=== PATIENT | female | born 1980 | race African-American/Black ===

== ENCOUNTER 2016-10-31 17:07 | Emergency (ER) ==
[2016-10-31 17:37] LABS: URINE CULTURE PL NEEDED? NO; URINE SOURCE CLEAN CATCH
[2016-10-31 17:39] LABS: BILIRUBIN URINE NEGATIVE (NEGATIVE); BLOOD URINE 4+ (NEGATIVE); CLARITY CLEAR (CLEAR); COLOR YELLOW; GLUCOSE URINE NEGATIVE (NEGATIVE); LEUKOCYTES URINE NEGATIVE (NEGATIVE); NITRITE URINE NEGATIVE (NEGATIVE); PH URINE 6.5; PROTEIN URINE NEGATIVE (NEGATIVE); SP GRAVITY URINE 1.005; UROBILINOGEN URINE 4+(12 mg/dL)
[2016-10-31 17:48] LABS: MANUAL DIFF NEEDED? NO
[2016-10-31 17:50] LABS: EOS# 0.11 X1000 (0.0-0.7); EOS% 1.9 % (0.0-10.0); HEMATOCRIT 34.6 % (37.0-47.0); HEMOGLOBIN 12.1 g/dL (12.0-16.0); LYMPH# 2.71 X1000 (1.2-3.4); LYMPH% 47.8 % (20.5-51.1); MCH 27.4 PG (27-31); MCV 78.3 FL (81-99); MONO# 0.66 X1000 (0.11-0.59); MONO% 11.6 % (1.7-9.3); MPV 10.9 FL (7.4-10.4); NEUT% 38.7 % (42.2-75.2); PLT 211 X1000 (130-400); RBC 4.42 XMIL (4.2-5.4)
[2016-10-31 17:56] LABS: URINE CAST NONE SEEN /LPF; URINE CRYSTAL NONE SEEN /HPF; URINE EPITHELIAL CELLS >10 /HPF (<10); URINE RBC <10 /HPF (<10)
--- NOTE | 2016-10-31 18:05 | PROVIDER DOCUMENTATION ---
HPI-Female /OB/Breast - General Source: reports: patient - History of Present Illness-Female /OB Does patient report she is ?: Yes Radiation: reports: none Context/Activities at Onset: reports: other (pap smear). denies: light activity , moderate activity, vigorous activity, recent emotional stress, recent physical stress, recent trauma history, possible bad food, cold exposure, eating , out of country travel, rest, sleep, sexual activity Vaginal Symptoms: reports: abnormal bleeding. denies: discharge, foul odor, itching, pain with intercourse, passing clots/tissue Vaginal Bleeding Amount: Spotting Urinary Symptoms: reports: no symptoms. denies: anuria, dysuria, dribbling, frequency, hematuria, hesitancy, incontinent, nocturia, polyuria, retention, urgency, low back pain Related Symptoms: reports: vaginal bleeding. denies: vaginal fluid leakage, uterine contractions, pelvic pain, abdominal pain Leakage of Fluid: none <Lesley Campbell - Last Filed: 10/31/16 19:31> <Romaine Dangelo - Last Filed: 10/31/16 21:27> - General Chief Complaint: Female Stated Complaint: 8WKS PREG/ABD PAIN/BLEEDING Time Seen by Provider: 10/31/16 17:44 Allergies/Adverse Reactions: Patient Allergies Allergy/AdvReac Type Severity Reaction Status Date / Time No Known Allergies Allergy Verified 05/12/15 15:07 Home Medications: Home Medication List Medication Instructions Recorded Confirmed Last Taken Type No Home Medications 10/31/16 10/31/16 Unknown History - History of Present Illness-Female /OB Nature of Presenting Problem: 36 y/o AAF , with previous ectopic in the right tube with rupture, approx 8 wks pregnanct by LMP, last saw OB 1 week ago where she had bHCG and pap smear continued. C/o vaginal bleeding since pap smear. it was light bleeding only when she wiped, but becoming heavier today. Still less than normal menses. Galled the OB, who told her this was normal, but she anted to come be checked. Denies abdominal pain, n/v/d. Denies dysuria, frequency or urgency. Denies vaginal discharge. States bleeding mostly just when she wipes. (Lesley Campbell) Review of Systems - Adult - REVIEW OF SYSTEMS - ADULT Constitutional: reports: no symptoms reported. denies: chills, fever, fatique Eyes: reports: no symptoms reported. denies: decreased vision, blurred vision, double vision, eye pain Ears, Nose, Mouth & Throat: reports: no symptoms reported. denies: ear pain, nose pain, throat pain Cardiovascular: reports: no symptoms reported. denies: chest pain, palpitations Respiratory: reports: no symptoms reported. denies: cough, shortness of breath Gastrointestinal: reports: no symptoms reported. denies: abdominal pain, diarrhea, nausea, vomiting Genitourinary: reports: no symptoms reported. denies: dysuria, discharge, frequency, incontinence Musculoskeletal: reports: no symptoms reported. denies: bone pain, back pain, muscle aches Integumentary: reports: no symptoms reported. denies: rash Neurological: reports: no symptoms reported. denies: dizziness/vertigo, headache/migraines Psychiatric: reports: no symptoms reported Endocrine: reports: no symptoms reported Hematologic/Lymphatic: reports: no symptoms reported Allergic/Immunologic: reports: no symptoms reported All Other Systems: Reviewed and Negative <Lesley Campbell - Last Filed: 10/31/16 19:31> Past History - Adult - PAST MEDICAL HISTORY-ADULT Review of Records: reports: Old Records Reviewed, Nursing Assessment Review, Medications Reviewed Major Childhood Illnesses: reports: denies history Cardiovascular: reports: denies history Respiratory: reports: denies history Gastrointestinal: reports: denies history Obstetrical/Gynecological: reports: ectopic Genitourinary: reports: denies history Musculoskeletal: reports: denies history Neurological: reports: other (brain abscess) 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) Other Conditions: reports: denies history - PRIOR SURGERIES/PROCEDURES Surgical/Procedure History: reports: , other (brain abscess) - IMMUNIZATION STATUS Childhood Immunizations: See Nurse Assessment Flu Vaccine: See Nurse Assessment - FAMILY HISTORY Family History: reviewed, not pertinent - SOCIAL HISTORY Smoking: denies Substance Use: none/never Alcohol Use Frequency: never <Lesley Campbell - Last Filed: 10/31/16 19:31> Physical Exam-General - PHYSICAL EXAM-ADULT Initial Vital Signs Reviewed: Yes - CONSTITUTIONAL General Appearance: appears well, alert, no apparent distress - EYES Eyes: PERRL/EOMI, pink conjunctivae - HEAD, EARS, NOSE, MOUTH & THROAT HENMT: normocephalic/atraumatic, moist mucous membranes, normal ENT inspection - NECK Neck: non-tender, full range of motion, supple, normal inspection - RESPIRATORY Respiratory: chest non-tender, lungs clear, normal breath sounds, no pleuratic chest pain, no respiratory distress, no accessory muscle use. negative: respiratory distress, decreased breath sounds, accessory muscle use, crackles, rales, rhonchi, wheezing - CARDIOVASCULAR Cardiovascular: normal peripheral pulses, regular rate, rhythm - GASTROINTESTINAL (ABDOMEN) Abdominal Exam: normal bowel sounds, non tender, soft, no organomegaly, no pulsatile mass. negative: abdominal bruit, abnormal bowel sounds, distended, guarding, rigid, rebound, tenderness - MUSCULOSKELETAL Extremity: normal gait - SKIN Integumentary: normal color, normal turgor, warm/dry - NEUROLOGIC Neurologic: grossly normal, no motor/sensory deficits - PSYCHIATRIC Psych/Mental Status: normal mood/affect, normal thought content, normal thought process, oriented x 3 <Lesley Campbell - Last Filed: 10/31/16 19:31> Progress - CHANGE OF SHIFT REPORT (ED Provider) Report Given and Care Transferred to:: Dr. Dangelo Time of Transfer: 19:31 Items Pending: Ultrasound Results Tentative Impression of Patient: stable <Lesley Campbell - Last Filed: 10/31/16 19:31> - ULTRASOUND (By Radiology) 1 US Study: Pelvic (8 week 3 day gestational sac, no free fluid, left ovarian cyst ) <Romaine Dangelo - Last Filed: 10/31/16 21:27> - PLAN OF CARE/RESULTS Progress/Plan/Lab Results: Vital Signs Temp Pulse Resp BP Pulse Ox 10/31/16 17:13 98 F 96 H 18 139/81 100 No Known Allergies Allergy (Verified 05/12/15 15:07) No Home Medications 10/31/16 Laboratory 10/31/16 10/31/16 10/31/16 17:40 17:40 17:40 WBC 5.67 RBC 4.42 Hgb 12.1 Hct 34.6 L MCV 78.3 L MCH 27.4 MCHC 35.0 RDW Std Deviation 12.4 Plt Count 211 MPV 10.9 H Immature Gran % (Auto) 0.0 Neut % (Auto) 38.7 L Lymph % (Auto) 47.8 [place] % (Auto) 11.6 H Eos % (Auto) 1.9 Baso % (Auto) 0.0 Immature Gran # (Auto) 0.00 Neut # (Auto) 2.19 Lymph # (Auto) 2.71 [place] # (Auto) 0.66 H Eos # (Auto) 0.11 Baso # (Auto) 0.00 Sodium Potassium Chloride Carbon Dioxide Anion Gap BUN Creatinine Estimated GFR/1.73 m2 BUN/Creatinine Ratio Glucose Calculated Osmolality Calcium Total Bilirubin AST ALT Alkaline Phosphatase Total Protein Albumin Globulin Albumin/Globulin Ratio Ser , Semi-Qnt 11838.0 Urine Source Urine Color Urine Clarity Urine pH Ur Specific [place] Urine Protein Urine Ketones Urine Blood Urine Nitrite Urine Bilirubin Urine Urobilinogen Urine Microscopic RBC Urine WBC Ur Epithelial Cells Urine Crystals Urine Bacteria Urine Casts Urine Yeast Urine Glucose ABO/Rh B POSITIVE RhIG Candidate? NO 10/31/16 10/31/16 17:40 17:36 WBC RBC Hgb Hct MCV MCH MCHC RDW Std Deviation Plt Count MPV Immature Gran % (Auto) Neut % (Auto) Lymph % (Auto) [place] % (Auto) Eos % (Auto) Baso % (Auto) Immature Gran # (Auto) Neut # (Auto) Lymph # (Auto) [place] # (Auto) Eos # (Auto) Baso # (Auto) Sodium 136 Potassium 3.2 L Chloride 100 Carbon Dioxide 22 L Anion Gap 13 BUN 8 Creatinine 0.4 L Estimated GFR/1.73 m2 > 60 BUN/Creatinine Ratio 20 Glucose 123 H Calculated Osmolality 272 Calcium 9.3 Total Bilirubin 0.50 AST 23 ALT 18 Alkaline Phosphatase 191 H Total Protein 7.3 Albumin 4.1 Globulin 3.0 Albumin/Globulin Ratio 1.0 Ser , Semi-Qnt Urine Source CLEAN CATCH Urine Color YELLOW Urine Clarity CLEAR Urine pH 6.5 Ur Specific [place] 1.005 Urine Protein NEGATIVE Urine Ketones NEGATIVE Urine Blood 4+ Urine Nitrite NEGATIVE Urine Bilirubin NEGATIVE Urine Urobilinogen 4+(12 mg/dL) Urine Microscopic RBC <10 Urine WBC NEGATIVE Ur Epithelial Cells >10 A Urine Crystals NONE SEEN Urine Bacteria 1+ Urine Casts NONE SEEN Urine Yeast NONE SEEN Urine Glucose NEGATIVE ABO/Rh RhIG Candidate? Orders Category Date Time Status US OBS COMPLETE < 14 WKS [US] Stat Exams 10/31/16 18:58 Ordered CBC WITH DIFF [HEME] Stat Lab 10/31/16 17:40 Completed CMP [COMPREHENSIVE METABOLIC PANEL] [CHEM] Stat Lab 10/31/16 17:40 Completed QUANT TEST Stat Lab 10/31/16 17:40 Completed RHOGAM WORKUP [BBK] Stat Lab 10/31/16 17:[address] W/POSS RFLX CULT [URINALYSIS] Stat Lab 10/31/16 17:36 Completed (Lesley Campbell) rechecked patient: no further bleeding, nontender abdomen, informed patient of OB results that showed 8wk 3day IUP and no pelvic fluid, incidental left ovarian cyst (Romaine Dangelo) Departure <Lesley Campbell - Last Filed: 10/31/16 19:31> - Departure Time of Disposition Order: 21:25 Certified Medical Emergency: Emergent <Romaine Dangelo - Last Filed: 10/31/16 21:27> - Departure DIAGNOSIS: Threatened miscarriage in early , 8 weeks gestation of Disposition: HOME 01 Condition: Stable Additional Instructions: no work until cleared by Ob doctor next week, no strenuous activity, followup with OB doctor next week Referrals: Thais Darling MD [Primary Care Provider] - Attestation - Physician/ KARMA Attestation Patient care was provided by Advanced Practice Provider:: Yes Advanced Practice Provider:: Lesley Campbell Advanced Practice Provider documentation review:: The Mid-level provider documentation, treatment plan and medical decision making was reviewed by the physician who agrees with all treatment and medical decision making by the MLP. The physician spent face to face time with patient:: Yes <Lesley Campbell - Last Filed: 10/31/16 19:31> Physician Attestation
[2016-10-31 18:11] LABS: AGAP 13; ALBUMIN 4.1 g/dL (3.5-5.0); ALKALINE PHOSPHATASE 191 U/L (32-104); BUN 8 mg/dL (8-22); CALCIUM 9.3 mg/dL (8.8-10.2); CHLORIDE 100 mmol/L (98-107); COSMO 272; GOT 23 U/L (10-30); GPT 18 U/L (10-36); POTASSIUM 3.2 mmol/L (3.5-5.1); SODIUM 136 mmol/L (136-145); TCO2 22 mmol/L (25-35); TOTAL PROTEIN 7.3 g/dL (6.3-8.3)
[2016-10-31 20:51] VITALS: BP 130/74
--- NOTE | 2016-11-01 09:35 | Diag Imaging Result Document ---
PROCEDURE NAME: US OBS COMPLETE < 14 WKS - 10/31/2016 OB ULTRASOUND: FINDINGS: There is an intrauterine gestational sac was 2 apparent yolk sacs. No poles are identified and no cardiac activity is demonstrated. By gestational sac size, the estimated gestational age should be 8 weeks, 3 days. The individual yolk sacs are both over 6 mm in size. There is a left ovarian cyst measuring 1.5 cm. There is a nabothian cyst in the cervix. No previous studies are available for this . There is no evidence of free pelvic fluid. IMPRESSION: Intrauterine gestational sac, consistent with a gestational age of 8 weeks, 3 days. The absence of visible pole or cardiac activity is concerning for a failed . The finding of the yolk sacs in excess of 6 mm is also somewhat concerning; however, this is not diagnostic. Followup scanning may be desirable in 1-2 weeks. The possibility of a twin gestation is suggested.
== END 2016-10-31 21:40 | disposition home or self-care (01) ==
LOC: P.ED 17:07
DX: O20.0 Threatened abortion (principal); O46.91 Antepartum hemorrhage, unspecified, first trimester; Z3A.01 Less than 8 weeks gestation of pregnancy
CPT/HCPCS: 36415; 76801; 80053; 81001; 84702; 85025; 86900; 86901

== ENCOUNTER 2016-11-01 20:07 | Emergency (ER) ==
[2016-11-01 20:25] LABS: MANUAL DIFF NEEDED? NO
--- NOTE | 2016-11-01 20:36 | PROVIDER DOCUMENTATION ---
HPI-General Adult - General Chief Complaint: Return/Recheck Stated Complaint: 8 WKS PREG/BLEEDING Time Seen by Provider: 11/01/16 20:12 Source: patient Allergies/Adverse Reactions: Patient Allergies Allergy/AdvReac Type Severity Reaction Status Date / Time No Known Allergies Allergy Verified 05/12/15 15:07 Home Medications: Home Medication List Medication Instructions Recorded Confirmed Last Taken Type No Home Medications 10/31/16 10/31/16 Unknown History - History of Present Illness -Gen Adult Nature of Presenting Problems: Pt. is 36 yof that presents with c/o abd cramping with vaginal bleeding at 8 weeks . Pt. reports she is a G4, P2 with one ectopic rupture. Pt. states she was seen last night for the same and was told she was fine. Pt. reports tonight she began to pass clots and now she is cramping. Pt. denies any other symptoms. Location of Pain/Injury: reports: abdomen. denies: head, face, mouth, neck, chest, upper extremity, hand(s), back, pelvis, genitalia, lower extremity, feet , upper body, lower body, generalized Pain Radiation: reports: no radiation Quality of Pain: reports: cramping. denies: aching, burning, dull, fullness, indigestion, pressure, sharp, stabbing, tearing, throbbing, tightness Severity: reports: moderate. denies: mild, severe Onset/Duration: reports: abrupt, this evening Timing: reports: still present. denies: improving, gone now, resolved prior to arrival, intermittent, constant, changing over time, getting worse Context/Activities at Onset: reports: none. denies: recent emotional stress, recent physical stress, recent trauma history, possible bad food, cold exposure , out of country travel Modifying Factors: improves with: nothing Associated Symptoms: reports: other (Vaginal bleeding with ). denies: anxiety, arm pain, back/neck pain, chest pain, constipation, cough, diaphoresis , diarrhea, dizziness, EENT symptoms, fatigue, fever/chills, genitourinary problems, headaches, heartburn, joint pain, loss of appetite, malaise, muscle aches, sinus congestion/drainage, nausea, rash, seizure, shortness of breath, sensory/motor loss, pain with inspiration, swelling/mass in abdomen, syncope, vomiting, weakness, trouble walking Similar Symptoms Previously?: Yes Recently seen or treated by another doctor?: Yes Review of Systems - Adult - REVIEW OF SYSTEMS - ADULT Constitutional: reports: see HPI. denies: chills, fever, fatique Eyes: reports: see HPI. denies: discharge, blurred vision, double vision Ears, Nose, Mouth & Throat: reports: see HPI. denies: ear discharge, ear pain, hearing loss, sinus problem, nose pain, loose teeth, mouth/dental pain, throat pain, throat swelling Cardiovascular: reports: see HPI. denies: chest pain, irregular heart rate, orthopnea, palpitations, syncope Respiratory: reports: see HPI. denies: cough, dyspnea on exertion, pleurisy, shortness of breath, wheezing Gastrointestinal: reports: see HPI, abdominal pain. denies: hematemesis, diarrhea, nausea, vomiting Genitourinary: reports: see HPI. denies: dysuria, discharge, flank pain, hematuria, hesitency, incontinence, urgency Musculoskeletal: reports: see HPI. denies: bone pain, back pain, joint pain, muscle aches, neck pain Integumentary: reports: see HPI. denies: hives, itching, rash, skin thickening Neurological: reports: see HPI. denies: ataxia, headache/migraines, numbness, seizure, tremors Psychiatric: reports: see HPI. denies: anxiety, depression, emotional problems , insomnia, panic attacks, suicidal thoughts Past History - Adult - PAST MEDICAL HISTORY-ADULT Review of Records: reports: Old Records Reviewed, Nursing Assessment Review, Medications Reviewed, Social history reviewed & non-contributory. 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 negative: obese, anxious, lethargic, slow to respond, obtunded, combative - EYES Eyes: PERRL/EOMI, pink conjunctivae. negative: conjuctival exudate, scleral icterus, subconjunctival hemorrhage - HEAD, EARS, NOSE, MOUTH & THROAT HENMT: normocephalic/atraumatic, moist mucous membranes. negative: angioedema, frontal tenderness, maxillary tenderness - NECK Neck: non-tender, full range of motion, supple, normal inspection. negative: lymphadenopathy, trachial deviation, thyromegaly - RESPIRATORY Respiratory: lungs clear, normal breath sounds. negative: crackles, rales, rhonchi, stridor, wheezing - CARDIOVASCULAR Cardiovascular: normal peripheral pulses, regular rate, rhythm, no edema, no JVD , no murmur. negative: extra beats, friction rub, irregularly irregular - CHEST (BREASTS) Chest/Breast: deferred - GASTROINTESTINAL (ABDOMEN) Abdominal Exam: normal bowel sounds, non tender, soft. negative: distended, guarding, rigid, rebound, tenderness, hernia, mass - GENITOURINARY Female Genitalia/Pelvic Exam: deferred Rectal Exam: deferred Hemoccult Exam: deferred - LYMPHATIC Lymphatic: no adenopathy. negative: axilla node tender, cervical node tenderness - MUSCULOSKELETAL Back Exam: normal inspection, no CVA tenderness, no vertebral tenderness. negative: ecchymosis, swelling, vertebral tenderness Extremity: normal range of motion, non-tender, normal gait, normal inspection. negative: deformity, erythema, inflammation, swelling, tenderness Peripheral Pulses: radial (R): 2+, radial (L): 2+ - SKIN Integumentary: normal color, normal turgor, warm/dry. negative: cyanosis, diaphoresis, ecchymosis, erythema, jaundice, mottled, pallor, petechiae, purpura , rash, swelling, tenderness - NEUROLOGIC Neurologic: grossly normal, no motor/sensory deficits. negative: aphasia, facial droop, focal weakness, motor weakness, sensory deficit - PSYCHIATRIC Psych/Mental Status: normal mood/affect, normal thought content, normal thought process, oriented x 3. negative: anxious, paranoid, tearful Progress - PLAN OF CARE/RESULTS Progress/Plan/Lab Results: Discussed results and plan of care with patient. Patient agrees with plan and verbalizes understanding. Vital Signs Temp Pulse Resp BP Pulse Ox 11/01/16 20:11 98 F 81 18 134/104 98 No Known Allergies Allergy (Verified 05/12/15 15:07) No Home Medications 10/31/16 Laboratory 11/01/16 11/01/16 20:20 20:20 WBC 8.53 RBC 4.73 Hgb 12.8 Hct 37.0 MCV 78.2 L MCH 27.1 MCHC 34.6 RDW Std Deviation 12.4 Plt Count 219 MPV 11.4 H Immature Gran % (Auto) 0.1 Neut % (Auto) 50.2 Lymph % (Auto) 40.1 [place] % (Auto) 8.2 Eos % (Auto) 1.3 Baso % (Auto) 0.1 Immature Gran # (Auto) 0.01 Neut # (Auto) 4.28 Lymph # (Auto) 3.42 H [place] # (Auto) 0.70 H Eos # (Auto) 0.11 Baso # (Auto) 0.01 Ser , Semi-Qnt 37818.0 Orders Category Date Time Status CBC WITH ELECTRONIC DIFF [HEME] Stat Lab 11/01/16 20:20 Completed QUANT TEST Stat Lab 11/01/16 20:20 Completed Laboratory Tests 11/01/16 11/01/16 20:20 20:20 WBC 8.53 RBC 4.73 Hgb 12.8 Hct 37.0 MCV 78.2 L MCH 27.1 MCHC 34.6 RDW Std Deviation 12.4 Plt Count 219 MPV 11.4 H Immature Gran % (Auto) 0.1 Neut % (Auto) 50.2 Lymph % (Auto) 40.1 [place] % (Auto) 8.2 Eos % (Auto) 1.3 Baso % (Auto) 0.1 Immature Gran # (Auto) 0.01 Neut # (Auto) 4.28 Lymph # (Auto) 3.42 H [place] # (Auto) 0.70 H Eos # (Auto) 0.11 Baso # (Auto) 0.01 Ser , Semi-Qnt 87699.0 Departure - Departure Time of Disposition Order: 21:24 DIAGNOSIS: Threatened miscarriage in early Disposition: HOME 01 Certified Medical Emergency: Emergent Condition: Stable Additional Instructions: Follow up with primary care physician Follow up wit OB physician Return to ED for any concerns or worsening of symptoms ED Follow Up Instructions: You have been treated by a care provider in the Emergency Department. These instructions are being provided to you so you can have an understanding of how to care for yourself upon discharge. Upon discharge from the Emergency Department, you are responsible for making arrangements for follow-up care by a physician of your choice. Take all prescribed medications as directed. Return to the Emergency Department immediately for any new or worsening symptoms. You may call the Physician Referral phone number at [phone] to obtain a list of Physicians who are taking new patients. Attestation - Physician/ KARMA Attestation Patient care was provided by Advanced Practice Provider:: Yes Advanced Practice Provider:: Betsy Gonzalez Advanced Practice Provider documentation review:: The Mid-level provider documentation, treatment plan and medical decision making was reviewed by the physician who agrees with all treatment and medical decision making by the MLP.
[2016-11-01 20:38] LABS: BASO% 0.1 % (0.0-0.8); EOS# 0.11 X1000 (0.0-0.7); EOS% 1.3 % (0.0-10.0); HEMOGLOBIN 12.8 g/dL (12.0-16.0); IMM GRAN# 0.01 X1000 (0.0-0.04); IMM GRAN% 0.1 % (0.0-0.5); LYMPH# 3.42 X1000 (1.2-3.4); LYMPH% 40.1 % (20.5-51.1); MCH 27.1 PG (27-31); MCHC 34.6 g/dL (33-37); MCV 78.2 FL (81-99); MONO% 8.2 % (1.7-9.3); MPV 11.4 FL (7.4-10.4); NEUT% 50.2 % (42.2-75.2); PLT 219 X1000 (130-400); RBC 4.73 XMIL (4.2-5.4)
[2016-11-01 21:40] VITALS: BP 163/83
== END 2016-11-01 21:40 | disposition home or self-care (01) ==
LOC: P.ED 20:07
DX: O20.0 Threatened abortion (principal); O46.91 Antepartum hemorrhage, unspecified, first trimester; O26.891 Other specified pregnancy related conditions, first trimester; R10.9 Unspecified abdominal pain; Z3A.08 8 weeks gestation of pregnancy
CPT/HCPCS: 84702; 85025; 99283